=== PATIENT | female | born 1950 | race Caucasian/White ===

== ENCOUNTER 2023-04-25 16:42 | Emergency (ER) | payer MEDICARE, SELFPAY ==
--- NOTE | 2023-04-25 16:52 | XRR_ITS ---
PROCEDURE INFORMATION: Exam: XR Right Knee Exam date and time: 04/25/2023 5:00 PM Age: 72 years old Clinical indication: Pain; Knee; Right; Additional info: Injury TECHNIQUE: Imaging protocol: Radiologic exam of the right knee. Views: 3 views. COMPARISON: No relevant prior studies available. FINDINGS: Bones/joints: Fracture of the lateral tibial plateau is seen along with oblique fracture line within the proximal right tibia. Sclerotic appearance of the fracture within the lateral tibial plateau suggests component of impaction, with oblique view demonstrating [id number]-[id number] depression at the fracture site. No significant displacement or angulation, otherwise. No dislocation at the knee joint. No other fracture is seen. Suprapatellar fullness or effusion is seen. Mild vascular calcification. Soft tissues: Soft tissue swelling XR/XR knee RT 3V* [id number] IMPRESSION: 1. Oblique fracture within the proximal right tibia with fracture of the lateral tibial plateau as noted above. 2. Soft tissue swelling and effusion.
[2023-04-25 16:56] VITALS: BP 176/79; PULSE 65; RESP 18; TEMP 36.7; O2SAT 99; BMI 22.2
--- NOTE | 2023-04-25 17:20 | W.ED.FALL ---
HPI - Fall General: Chief Complaint: Fall Stated Complaint: Fall RT Pain Time Seen by Provider: 04/25/23 16:52 Source: patient and EMS Mode of arrival: EMS Limitations: no limitations History of Present Illness: 72-year-old female who is here with EMS after a fall states she fell down 2 steps twisted her right knee and landed on that knee as well. States she had knee pain since then she has not been able to bear any weight. States she did hit her head but had no loss of conscious denies any headache at all currently she denies any neck pain. Denies any hip or ankle pain. Associated symptoms-after fall: Denies abdominal pain, chest pain, headache(s) or neck pain Review of Systems Const: Denies: fever(s), chills, body aches or change in appetite ENMT: Denies: throat pain or dental pain Card: Denies: chest pain Resp: Denies: dyspnea GI: Denies: abdominal pain, nausea or vomiting Musc: Reports: extremity pain; Denies: neck pain or back pain Skin/Breast: Denies: rash Neuro: Denies: headache(s) Physical Exam Const: COMMON NORMALS: no acute distress, patient oriented x3 and healthy appearing HENMT: COMMON NORMALS: normocephalic and atraumatic HEAD & SCALP: normocephalic and atraumatic Eye: COMMON NORMALS: conjunctivae normal CONJUNCTIVA: Yes conjunctivae normal Neck/C-Spine: COMMON NORMALS: full ROM and supple Chest: COMMONS NORMALS: normal inspection of the chest and normal palpation of entire chest wall Resp: COMMON NORMALS: normal respiratory effort, No retractions, No use of accessory muscles and clear to auscultation bilaterally AUSCULTATION: clear to auscultation bilaterally Cardio: COMMON NORMALS: regular rate, regular rhythm and No murmurs present (Cardio) RATE: regular rate RHYTHM: regular rhythm GI: INSPECTION: Yes normal to inspection Extremity: NARRATIVE EXTREMITY EXAM: Tenderness over right knee slight swelling not able to ambulate distal pulses sensation intact no hip pain Neuro: COMMON NORMALS: patient oriented x3, moves all extremities and no focal motor deficits Psych: COMMON NORMALS: mental status grossly normal, Normal thought process present and cooperative THOUGHT PROCESS: Normal thought process present Skin: COMMON NORMALS: no rashes or lesions noted and no wounds GENERAL SKIN EXAM: no rashes or lesions noted Course Vital Signs: Vital signs: Vital Signs Temperature 98.1 F 04/25/23 16:56 Pulse Rate 65 04/25/23 16:56 Respiratory Rate 18 04/25/23 16:56 Blood Pressure 176/79 04/25/23 16:56 Pulse Oximetry 99 04/25/23 16:56 Oxygen Delivery Me thod Room Air 04/25/23 16:56 MDM - Fall Medical Decision Making Patient presents here with tibial plateau fracture from a fall we will place immobilizer she is to be nonweightbearing we will get CT scan for follow-up I did speak to orthopedic surgeon Dr. Archer and patient is to follow-up with him she has no other new injuries noted. Lab Data Radiology Impressions Knee X-Ray 04/25/23 16:52 IMPRESSION: 1. Oblique fracture within the proximal right tibia with fracture of the lateral tibial plateau as noted above. 2. Soft tissue swelling and effusion. Discharge Plan Discharge Patient Disposition: Home Clinical Impression: Fall Fracture of tibial plateau Qualifiers: Encounter type: initial encounter Fracture type: closed Laterality: right Qualified Code(s): S82.141A - Displaced bicondylar fracture of right tibia, initial encounter for closed fracture Condition: Stable Prescriptions: New hydrocodone-acetaminophen 5-325 mg tablet 1 tab PO Q6H PRN (Reason: pain) Qty: 14 0RF Discharge Orders: Discharge ED (Routine); Ordered 04/25/23 Ordered By: Brandi Duckworth Referrals: Damion Archer DO [Physician] - 1-3 days Discharge Diet: Advance as tolerated Discharge Activity: Limit activity as instructed Patient Instructions: Knee Pain (ED), Knee Immobilizer (ED), Opioid Safety Coding Level of Care Code ED [employer] Worker for Adebayo Mccartney
--- NOTE | 2023-04-25 17:27 | CTR_ITS ---
PROCEDURE INFORMATION: Exam: CT Right Lower Extremity Without Contrast, Knee Exam date and time: 04/25/2023 6:01 PM Age: 72 years old Clinical indication: Pain; Knee; Right; Additional info: FX TECHNIQUE: Imaging protocol: CT of the right lower extremity without contrast was performed. Exam focused on the knee. Radiation optimization: All CT scans at this facility use at least one of these dose optimization techniques: automated exposure control; mA and/or kV adjustment per patient size (includes targeted exams where dose is matched to clinical indication); or iterative reconstruction. REPORTING DATA: Count of CT and Cardiac NM exams in prior 12 months: This patient has received 0 known CTs and 0 known cardiac nuclear medicine studies in the 12 months prior to the current study. COMPARISON: CR (LOW EXM, ) 04/25/2023 5:00 PM RADIATION DOSE METRICS: Total DLP (mGy-cm): 446.37 FINDINGS: Bones/joints: Intra-articular fracture with impaction is seen involving the lateral tibial plateau. This is associated with a approximally 6 mm of depression. No other fracture seen. Plain film suggested oblique fracture within the proximal tibia as well. This is not demonstrated with CT exam. This likely represented overlying soft tissue lucent line on the plain films therefore. No loose body is seen within the joint space. Soft tissues: There is an associated joint effusion or hemarthrosis. A popliteal or Granados cyst suggested within the posteromedial popliteal region of 2.5-3 cm. Mild vascular calcification is seen. CT/CT knee RT wo con* [id number] IMPRESSION: 1. Lateral tibial plateau fracture as noted above, with associated complex joint effusion or hemarthrosis. 2. Popliteal or Granados cyst.
--- NOTE | 2023-04-25 17:46 | PC.NURSE ---
PT DNEIED BRANDYCHED, STATES SHE WANTS TO USE HER WALKER AT HOME
--- NOTE | 2023-04-26 07:38 | DCPLANNER ---
Addendum entered by Clau Hawkins 05/17/23 07:11: Patient had a follow up appointment scheduled with ortho - patient did attend appointment Addendum entered by Clau Hawkins 04/27/23 08:53: Patient has a follow up appointment scheduled for Monday, May 01, [address]23 at 1:[address] Archer at ortho. Original Note: manager of employee relations had message to schedule a follow up appointment for patient with ortho. manager of employee relations sent patients information to the front office staff at ortho. Patients information will be printed and reviewed. Clinic will call patient with appointment information.
--- NOTE | 2023-04-26 14:00 | DCPLANNER ---
assistant office manager was triggered to call patient due to no primary care physician - patient does not live in the area.
== END 2023-04-25 18:23 | disposition home or self-care (01) ==
PROVIDERS: Emergency Provider Emergency Medicine
DX: S82.141A Displaced bicondylar fracture of right tibia, initial encounter for closed fracture (principal); W10.8XXA Fall (on) (from) other stairs and steps, initial encounter
CPT/HCPCS: 29530; 73562; 73700; 99284

== ENCOUNTER → 2023-05-01 14:40 | Outpatient (BNVA) | payer MEDICARE, SELFPAY | PROVIDERS: Visit Provider Orthopaedic Surgery | DX: S82.141A Displaced bicondylar fracture of right tibia, initial encounter for closed fracture (principal); W19.XXXA Unspecified fall, initial encounter | CPT/HCPCS: 73562; 99204 ==

== ENCOUNTER → 2023-05-29 13:05 | Outpatient (BNVA) | payer MEDICARE, SELFPAY | PROVIDERS: Visit Provider Physician Assistant | DX: S82.141D Displaced bicondylar fracture of right tibia, subsequent encounter for closed fracture with routine healing (principal); X58.XXXD Exposure to other specified factors, subsequent encounter; Z46.89 Encounter for fitting and adjustment of other specified devices | CPT/HCPCS: 73562; 97760; 99213; L1832 ==

== ENCOUNTER 2023-05-29 14:59 | Outpatient (CLI) | payer MEDICARE, OTHER, SELFPAY | END 2023-05-29 15:00 | disposition home or self-care (01) | LOC: SPT 14:59 | PROVIDERS: Visit Provider Physician Assistant | DX: Z46.89 Encounter for fitting and adjustment of other specified devices (principal); S82.141D Displaced bicondylar fracture of right tibia, subsequent encounter for closed fracture with routine healing; X58.XXXD Exposure to other specified factors, subsequent encounter | CPT/HCPCS: 97760; L1832 ==

== ENCOUNTER → 2023-06-26 13:21 | Outpatient (BNVA) | payer MEDICARE, SELFPAY | PROVIDERS: Visit Provider Physician Assistant | DX: S82.141D Displaced bicondylar fracture of right tibia, subsequent encounter for closed fracture with routine healing; X58.XXXD Exposure to other specified factors, subsequent encounter; F17.200 Nicotine dependence, unspecified, uncomplicated | CPT/HCPCS: 73562; 99213 ==